=== PATIENT | female | born 1985 | race African-American/Black ===

== ENCOUNTER 2016-12-21 13:41 | Inpatient (IN) ==
--- NOTE | 2016-12-21 14:19 | EKG Report ---
Test Performed on : 12/21/2016 1:52:07 PM Test Reason : dizziness Blood Pressure : / mmHG Vent. Rate : 086 BPM Atrial Rate : 086 BPM P-R Int : 130 ms QRS Dur : 096 ms QT Int : 360 ms P-R-T Axes : 069 017 024 degrees QTc Int : 430 ms Normal sinus rhythm. Normal ECG When compared with ECG of 05-DEC-2015 18:54, No significant change was found Unconfirmed Result
[2016-12-21 14:32] LABS: URINE MICRO REVIEW NEEDED? NO; URINE SOURCE CLEAN CATCH
[2016-12-21 14:33] LABS: MANUAL DIFF NEEDED? NO
[2016-12-21 14:38] LABS: BILIRUBIN URINE NEGATIVE (NEGATIVE); BLOOD URINE NEGATIVE (NEGATIVE); COLOR YELLOW; GLUCOSE URINE NEGATIVE (NEGATIVE); LEUKOCYTES URINE NEGATIVE (NEGATIVE); NITRITE URINE NEGATIVE (NEGATIVE); PROTEIN URINE NEGATIVE (NEGATIVE); SP GRAVITY URINE 1.014; TURBIDITY URINE CLEAR (CLEAR); UROBILINOGEN URINE NORMAL (NORMAL)
[2016-12-21 14:39] LABS: UR EPITHELIAL CELLS >10 /HPF (<10); URINE BACTERIA 2+ /HPF; URINE CULTURE NEEDED? YES; URINE RBC <10 /HPF (<10); URINE WBC <10 /HPF (<10)
[2016-12-21 14:41] LABS: BASO% 0.3 % (0.0-0.8); EOS# 0.01 X1000 (0.0-0.7); EOS% 0.1 % (0.0-10.0); HEMATOCRIT 30.3 % (37.0-47.0); HEMOGLOBIN 8.8 g/dL (12.0-16.0); LYMPH# 1.84 X1000 (1.2-3.4); LYMPH% 27.6 % (20.5-51.1); MCV 82.6 FL (81-99); MPV 9.2 FL (7.4-10.4); PLT 368 X1000 (130-400); RBC 3.67 XMIL (4.2-5.4)
[2016-12-21] MEDS ORDERED: NS 1,000 ML IV ONE (14:43)
[2016-12-21 14:48] LABS: INR 1.01; PROTIME 10.6 Seconds (9.2-11.7); PTT 24.4 Seconds (22.0-36.0)
[2016-12-21 15:02] LABS: UR AMPHETAMINES QUAL NONE DETECTED (NONE DETECT); UR BARBITUATES QUAL NONE DETECTED (NONE DETECT); UR BENZODIAZEPIN QUAL NONE DETECTED (NONE DETECT); UR CANNABINOIDS QUAL NONE DETECTED (NONE DETECT); UR COCAINE QUAL NONE DETECTED (NONE DETECT); UR METHADONE QUAL NONE DETECTED (NONE DETECT); UR OPIATES QUAL NONE DETECTED (NONE DETECT); UR OXYCODONE QUAL NONE DETECTED (NONE DETECT); UR PCP QUAL NONE DETECTED (NONE DETECT)
--- NOTE | 2016-12-21 15:05 | Diag Imaging Result Document ---
PROCEDURE NAME: HEAD W/O CONTRAST - 12/21/2016 CT OF THE HEAD WITHOUT CONTRAST: FINDINGS: There is no evidence of mass effect, bleed, or abnormal extra-axial fluid collection. The calvarium is intact. Compared to 07/28/2015, there has been no significant change. IMPRESSION: No evidence of acute intracranial disease.
[2016-12-21 15:06] LABS: AGAP 12; ALBUMIN 4.6 g/dL (3.5-5.0); ALKALINE PHOSPHATASE 46 U/L (32-104); BUN 8 mg/dL (8-22); CALCIUM 9.1 mg/dL (8.8-10.2); CHLORIDE 103 mmol/L (98-107); COSMO 276; GOT 12 U/L (10-30); GPT 12 U/L (10-36); POTASSIUM 3.9 mmol/L (3.5-5.1); SODIUM 139 mmol/L (136-145); TCO2 24 mmol/L (25-35); TOTAL BILIRUBIN 0.15 mg/dL (0.20-1.00); TOTAL PROTEIN 7.6 g/dL (6.3-8.3)
--- NOTE | 2016-12-21 15:14 | Diag Imaging Result Document ---
PROCEDURE NAME: CHEST-PORTABLE - 12/21/2016 PORTABLE CHEST AT 1440 HOURS: FINDINGS: There is no evidence of acute cardiac or pulmonary disease. The inspiration is slightly less optimal than on 06/04/2016. Otherwise, there has been no significant change. IMPRESSION: No acute disease.
[2016-12-21] MEDS ORDERED: MOTRIN PO ONE (16:24)
[2016-12-21 16:44] LABS: RETIC% 1.07 % (0.8-2.1); RETIC-HE 23.2 PG (28.2-36.6)
[2016-12-21 16:53] LABS: IRON SATURATION 10 %; TIBC 349 ug/dL; TOTAL IRON 35 ug/dL (49-151); UNBOUND IRON 314 ug/dL (112-346)
--- NOTE | 2016-12-21 17:00 | PROVIDER DOCUMENTATION ---
This chart was entered by Estefany Cunha Scribe, acting as scribe for Liss Harris MD. HPI-Neurological Disorder - General Chief Complaint: Stroke-Like Symptoms Stated Complaint: DIZZINESS,EDDY,TIGHTNESS IN LEFT HAND Time Seen by Provider: 12/21/16 13:56 Source: patient Allergies/Adverse Reactions: Patient Allergies Allergy/AdvReac Type Severity Reaction Status Date / Time hydromorphone HCl * Allergy Severe ANAPHYLAXIS Verified 12/21/16 14:17 [From Dilaudid] sulfamethoxazole AdvReac NAUSEA/VOMI Verified 12/21/16 14:17 [From Bactrim] TING trimethoprim [From Bactrim] AdvReac NAUSEA/VOMI Verified 12/21/16 14:17 TING Home Medications: Home Medication List Medication Instructions Recorded Confirmed Last Taken Type NK [No Home Medications] 12/21/16 12/21/16 Unknown History - History of Present Illness-Neuro Nature of Presenting Problem: 31 y/o F presents to ED cc of possible stroke. 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 Pt states she was in the ICU at [facility] for it. Pt today presents to ED with L sided numbness and weakness. Pt states she has had a R sided headache x 2 days now. Pt also reports difficult speaking and forgetting what she is saying. Pt was following up with neurology and states stopped her medication and stopped following up when all symptoms went away. Pt denies any pain other than a headache. Pt family states noticed pt having trouble forming her words and the L side weakness. Family states pt has been limping on the L leg and needed assistance with getting dressed due to weakness of leg and arm. Family also states pt has a droop to the L side of face on smile. Family also reports pt having trouble driving today . Pt was made by family to come to ED for the symptoms. Pt is alert and oriented and in no distress on exam. On exam pt does have pronator drift to left leg and arm. Pt also has spasticity to the left hand. Headache Location: reports: temporal (R side), occipital Severity: reports: mild Onset/Duration: reports: 2 days ago Timing: reports: still present Context: reports: impaired speech, facial droop, other (L sided weakness) Character of Altered Mental Status: reports: N/A Any recent trauma/injury?: reports: none Character of Deficits: reports: new weakness (L arm/ leg) New weakness or altered sensation location:: reports: LUE, LLE, left facial Cognitive Baseline: alert, oriented x3 Gait Baseline: walks without assistance Associated Symptoms: reports: decreased ability to walk or stand (due to), numbness in legs/feet (L leg), slurred speech, other (facial droop(l side)). denies: fever/chills, tingling in legs/feet Similar Symptoms Previously?: No Recently seen or treated by another doctor?: No Review of Systems - Adult - REVIEW OF SYSTEMS - ADULT Constitutional: denies: chills, fever Ears, Nose, Mouth & Throat: denies: ear pain, throat pain Cardiovascular: denies: chest pain, palpitations Respiratory: denies: cough, shortness of breath Gastrointestinal: denies: abdominal pain, diarrhea, nausea, vomiting Genitourinary: denies: discharge, frequency Musculoskeletal: denies: bone pain, back pain Integumentary: denies: rash, skin thickening Neurological: reports: headache/migraines (R SIDED X 2 DAYS), numbness (L LEG / L ARM), slurred speech, other (L sided facial droop) Past History - Adult - PAST MEDICAL HISTORY-ADULT Review of Records: reports: Old Records Reviewed, Nursing Assessment Review Major Childhood Illnesses: reports: denies history Cardiovascular: reports: denies history Respiratory: reports: denies history Gastrointestinal: reports: denies history Obstetrical/Gynecological: reports: denies history Genitourinary: reports: denies history Musculoskeletal: reports: denies history Neurological: reports: CVA Psychiatric: reports: other (conversion disorder) Endocrine/Immune: reports: denies history Other Conditions: reports: denies history - PRIOR SURGERIES/PROCEDURES Surgical/Procedure History: reports: (x2), other (breast reduction) - PRIOR HOSPITALIZATIONS Prior Hospitalizations: reports: none - IMMUNIZATION STATUS Childhood Immunizations: See Nurse Assessment Flu Vaccine: See Nurse Assessment - FAMILY HISTORY Family History: reviewed, not pertinent - SOCIAL HISTORY Smoking: denies, non-smoker Substance Use: denies Physical Exam- Neurological - Physical Exam-Neuro Initial Vital Signs Reviewed: Yes General Appearance: alert, no apparent distress HENMT: moist mucous membranes, normal ENT inspection Head Injury: no evidence of injury Neck: non-tender Respiratory: chest non-tender, lungs clear, normal breath sounds Cardiovascular: normal peripheral pulses, regular rate, rhythm, no edema Abdominal Exam: normal bowel sounds, non tender, soft Extremity: non-tender, no pedal edema, no calf 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: normal hearing Neurologic: abnormal gait, facial droop (L side), other ( pronator drift to L leg/ L arm.) Integumentary: normal color, normal turgor, warm/dry Psych/Mental Status: oriented x 3 Progress - PLAN OF CARE/RESULTS Progress/Plan/Lab Results: Vital Signs - 8 hr 12/21/16 13:49 Temperature 98.4 F Pulse Rate 87 Respiratory Rate 18 Blood Pressure 127/58 O2 Sat by Pulse Oximetry 100 Bedside Urine ED: Urine Bedside Start: 12/21/16 14:09 Freq: ORDERED Status: Active Activity Type Activity Date Activity User E-Sign Co-Sign Detail Recorded Client Recorded Date Recorded By Document 12/21/16 14:22 [id number] 12/21/16 14:22 [id number] 12/21/16 14:22 Point of Care [Bedside Point of Care] -Lot # [id number] - Results Negative -Control Line Visible? Yes Laboratory Results - last 24 hr 12/21/16 12/21/16 12/21/16 14:20 14:20 14:20 WBC 6.67 RBC 3.67 L Hgb 8.8 L Hct 30.3 L MCV 82.6 MCH 24.0 L MCHC 29.0 L RDW Std Deviation 15.1 H Plt Count 368 MPV 9.2 Neut % (Auto) 66.0 Lymph % (Auto) 27.6 Wallace % (Auto) 6.0 Eos % (Auto) 0.1 Baso % (Auto) 0.3 Neut # (Auto) 4.40 Lymph # (Auto) 1.84 Wallace # (Auto) 0.40 Eos # (Auto) 0.01 Baso # (Auto) 0.02 PT 10.6 INR 1.01 PTT (Actin FS) 24.4 Sodium 139 Potassium 3.9 Chloride 103 Carbon Dioxide 24 L Anion Gap 12 BUN 8 Creatinine 0.8 Estimated GFR/1.73 m2 > 60 BUN/Creatinine Ratio 10 Glucose 99 Calculated Osmolality 276 Calcium 9.1 Total Bilirubin 0.15 L AST 12 ALT 12 Alkaline Phosphatase 46 Troponin T Total Protein 7.6 Albumin 4.6 Globulin 3.0 Albumin/Globulin Ratio 1.5 Urine Source Urine Color Urine Turbidity Urine pH Ur Specific [place] Urine Protein Ur Glucose (Stick) Ur Ketones (Stick) Urine Blood Urine Nitrite Urine Bilirubin Urobilinogen Dipstick Urine Leukocytes Urine WBC (Auto) Urine RBC (Auto) U Epithel Cells (Auto) Urine Bacteria (Auto) Urine Opiates Screen Ur Oxycodone Screen Ur Methadone, Qual Ur Barbiturates Screen Ur Phencyclidine Scrn Ur Amphetamines Screen U Benzodiazepines Scrn Urine Cocaine Screen U Cannabinoids Screen 12/21/16 12/21/16 12/21/16 14:20 14:20 14:20 WBC RBC Hgb Hct MCV MCH MCHC RDW Std Deviation Plt Count MPV Neut % (Auto) Lymph % (Auto) Wallace % (Auto) Eos % (Auto) Baso % (Auto) Neut # (Auto) Lymph # (Auto) Wallace # (Auto) Eos # (Auto) Baso # (Auto) PT INR PTT (Actin FS) Sodium Potassium Chloride Carbon Dioxide Anion Gap BUN Creatinine Estimated GFR/1.73 m2 BUN/Creatinine Ratio Glucose Calculated Osmolality Calcium Total Bilirubin AST ALT Alkaline Phosphatase Troponin T < 0.010 Total Protein Albumin Globulin Albumin/Globulin Ratio Urine Source CLEAN CATCH Urine Color YELLOW Urine Turbidity CLEAR Urine pH 7.0 Ur Specific [place] 1.014 Urine Protein NEGATIVE Ur Glucose (Stick) NEGATIVE Ur Ketones (Stick) NEGATIVE Urine Blood NEGATIVE Urine Nitrite NEGATIVE Urine Bilirubin NEGATIVE Urobilinogen Dipstick NORMAL Urine Leukocytes NEGATIVE Urine WBC (Auto) <10 Urine RBC (Auto) <10 U Epithel Cells (Auto) >10 A Urine Bacteria (Auto) 2+ Urine Opiates Screen NONE DETECTED Ur Oxycodone Screen NONE DETECTED Ur Methadone, Qual NONE DETECTED Ur Barbiturates Screen NONE DETECTED Ur Phencyclidine Scrn NONE DETECTED Ur Amphetamines Screen NONE DETECTED U Benzodiazepines Scrn NONE DETECTED Urine Cocaine Screen NONE DETECTED U Cannabinoids Screen NONE DETECTED Orders Category Date Time Status Cardiac Monitoring DIRECTED Care 12/21/16 14:08 Active ED: Urine Bedside ORDERED Care 12/21/16 14:09 Active Finger Stick Blood Sugar (ED) DIRECTED Care 12/21/16 14:08 Active Saline Loc NOW Care 12/21/16 14:08 Active CHEST-PORTABLE [RAD] Stat Exams 12/21/16 14:08 Completed HEAD W/O CONTRAST [CT] Stat Exams 12/21/16 14:08 Completed CBC WITH ELECTRONIC DIFF [HEME] Stat Lab 12/21/16 14:20 Completed COMPREHENSIVE METABOLIC PANEL [CHEM] Stat Lab 12/21/16 14:20 Completed PROTIME WITH INR [COAG] Stat Lab 12/21/16 14:20 Completed PTT [COAG] Stat Lab 12/21/16 14:20 Completed TROPONIN T Stat Lab 12/21/16 14:20 Completed URINALYSIS W/POSS RFLX CULT [URINALYSIS] Stat Lab 12/21/16 14:20 Completed URINE DRUG SCREEN Stat Lab 12/21/16 14:20 Completed 0.9% Sodium Chloride Inj [Ns] 1,000 ml Med 12/21/16 14:08 Active IV 100 mls/hr 0.9% Sodium Chloride Inj [Ns] 1,000 ml Med 12/21/16 14:43 Active IV 999 mls/hr EKG [EKG] Stat Ther 12/21/16 13:45 Draft PLAN: LABS, HEAD CT, FLUIDS, URINE, MONITOR PT. Result Diagrams: 12/21/16 14:20 12/21/16 14:20 - XRAY 1 XRAY: Bilateral XRAY Study: Chest Impression: Normal XRAY Interpretation: nad- (radiologist) - CT/MRI 1 CT Study: Head Impression: Normal (no bleed or mass, stable since 07/28/15) CT Results: see impression - Dr. Cedeño(radiologist) - CONSULTS/PCP/HOSPITALIST Notification #1 *Consult/PCP/Hospitalist*: Time Discussed: 15:38 Consult Disposition: Admit Departure - Departure Time of Disposition Decision: 15:42 DIAGNOSIS: Focal neurological deficit Disposition: ADMITTED INPATIENT 09 Certified Medical Emergency: Emergent Condition: Stable Referrals and Follow-Ups: None,PCP [Primary Care Provider] - - NIH Stroke Scale Level of Consciousness: 0-Alert LOC Questions (ask month and age): 0-Answers Both Correctly LOC Commands (ask to open & close eyes;make a fist, let go): 0-Obeys Both Correctly Best Gaze (horizontal eye movement): 0-Normal Visual (use finger movement, counting or visual threat): 0-No Visual Loss Motor Function-left arm: 1-Drift Motor Function-right arm: 0-Normal Motor Function-left le-Drift Motor Function-right le-Normal Limb Ataxia([id number], or heel to espitia): 1-Present in one limb Sensory(pin prick to face,arms,trunk,legs-compare side/side): 0-No Ataxia This chart was documented by the indicated scribe, (Estefany Cunha, Dena) and accurately reflects the services I performed and decisions made by , Liss Harris MD, as attested by the provider's signature.
--- NOTE | 2016-12-21 17:07 | HISTORY AND PHYSICAL ---
CHIEF COMPLAINT: Left-sided weakness. HISTORY OF PRESENT ILLNESS: Mrs. Sosa is a pleasant, 31-year-old female with a history of possible migraines and possible conversion disorder, who presents to [facility] with left-sided weakness and altered mental status. Initially her boyfriend at the bedside began giving the history because of the patient was awake but not responding to questions and then she eventually began to answer questions. She states that she has been having a headache over the left side of her head for about 2 days. This morning her boyfriend states he was going to work and when he went to talk to her she was awake but staring off into seemingly nothing and minimally responsive. He tried to get her to response but she did not. She began to drop her left arm and at that time 911 was called. The patient has been seen in our facility and had a complete neurologic workup in July of 2015. At that time she had an MRI and MRA of the head, she had carotids, and echocardiogram, all of which were negative. Dr. Anderson saw her at that time and did not feel that there was any acute pathology occurring. Ultimately she was discharged. She returns today with the same type of symptoms. Her head CT is negative. Chest x-ray is negative. Her lab data is unremarkable with the exception of normocytic anemia. After reviewing her lab data in the past, it would seem that she is chronically anemic. Currently, she has left upper and left lower extremity weakness and numbness and she has a left-sided facial droop. Again, head CT is negative. She is now going to be admitted for further treatment and evaluation. PAST MEDICAL HISTORY: 1. Chronic anemia. 2. Questionable conversion disorder. 3. Questionable migraine headaches. PAST SURGICAL HISTORY: She has had wrist surgery, breast reduction surgery, and x2. FAMILY HISTORY: Both parents are alive. Both parents with hypertension. SOCIAL HISTORY: The patient's boyfriend is at the bedside. She has 2 children. 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 She denies tobacco, alcohol, or drug use. REVIEW OF SYSTEMS: Fourteen-point review of systems was obtained and found to be negative with the exception of the HPI. ALLERGIES: Dilaudid and Bactrim. HOME MEDICATIONS: None. PHYSICAL EXAMINATION: VITAL SIGNS: Blood pressure is 127/58, heart rate is 87, respiratory rate is 18 , O2 saturation 100% on room air, temperature is 98.4 degrees. GENERAL: This is a well-developed, well-nourished, female, lying in the hospital bed, no acute distress. NEUROLOGIC: She is awake and alert at times. There are times when she will have a blank stare without any responsiveness. When she does come to she has trouble answering orientation questions but eventually does answer them correctly. She has left upper and left lower extremity weakness and decreased sensation in her left face, left arm, and left leg pain. She also has a left-sided facial droop and her speech is slightly slurred. HEENT: Head is atraumatic and normocephalic. Her pupils are equal, round, reactive to light. Oral mucosa is moist. Trachea is midline. There is no JVD. No carotid bruits. CHEST: Clear to auscultation bilaterally. CV: Regular rate and rhythm. S1, S2 is noted. There are no murmurs, gallops, clicks, or rubs. GI: Soft, nondistended, nontender. Bowel sounds are positive. EXTREMITIES: No edema, clubbing, or cyanosis. Pulses are palpable bilaterally. DIAGNOSTIC DATA: Head CT does not show anything acute. Chest x-ray is negative. EKG: Sinus rhythm without acute ST or T abnormalities. LAB DATA: WBC 6.67, hemoglobin 8.8, hematocrit 30.3, platelet count 368,000. INR 1.01. Sodium 139, potassium 3.9, chloride 103, CO2 24, anion gap 12, BUN 8, creatinine 0.8, glucose 99, total bilirubin 0.15, AST 12, ALT 12, alkaline phosphatase 46. Troponin negative. UA is negative for any acute process. Toxicology is negative. ASSESSMENT AND PLAN: 1. Left-sided weakness: Very unlikely to be an organic pathology such as CVA. We are most likely dealing with either conversion disorder or migraine induced weakness. In any case, we are going to check an MRI and consult with Dr. Anderson. We would also consider consulting with psychiatry. We will admit her to the floor with telemetry. Add daily low-dose aspirin. Check lipid panel and A1c. Continue with neuro checks. 2. Normocytic anemia: Likely to be chronic. We are going to check iron studies , thyroid function, and treat accordingly. 3. Deep vein thrombosis prophylaxis with Lovenox. Further recommendations to follow. Dictated by ALIREZA Leong for Leila Tee MD cc: ALIREZA Leong MD The patient was seen and examined by me. I agree with the assessment and plan as dictated. [facility]
[2016-12-21 17:09] LABS: FREE T4 0.98 ng/dL (0.93-1.70)
--- NOTE | 2016-12-21 17:20 | Diag Imaging Result Document ---
PROCEDURE NAME: MRA BRAIN W/O CONTRAST - 12/21/2016 MRA OF THE BRAIN: FINDINGS: There is no evidence of aneurysm or major branch occlusion. There is a somewhat beaded appearance of the A-1 segment on the right. This is also true of some of the distal branches, but sometimes this can be a result of artifact. IMPRESSION: No major branch occlusion.
--- NOTE | 2016-12-21 17:21 | Diag Imaging Result Document ---
PROCEDURE NAME: MRI BRAIN W W/O CONTRAST - 12/21/2016 MRI OF THE BRAIN: FINDINGS: There is metallic artifact due to the patient's dental work in the frontal lobes. There is no evidence of mass effect, bleed, or abnormal extra-axial fluid collection. The diffusion-weighted images are suboptimal due to the metallic artifact. No evidence of restricted diffusion is present in the posterior portion of the cerebrum. There is no evidence of abnormal gadolinium enhancement. IMPRESSION: No evidence of acute disease.
[2016-12-21 18:40] LABS: HEMOGLOBIN A1C 4.3 % (4.8-6.0)
[2016-12-21] MEDS: NS 1,000 ML IV PRN ×2 (19:07→23:28)
[2016-12-21] MEDS ORDERED: TYLENOL PO PRN (21:00)
[2016-12-21] MEDS: LOVENOX SUBQ SCH (23:26)
[2016-12-22 07:37] LABS: HEMATOCRIT 27.6 % (37.0-47.0); HEMOGLOBIN 7.7 g/dL (12.0-16.0); MCH 23.5 PG (27-31); MCHC 27.9 g/dL (33-37); MCV 84.1 FL (81-99); MPV 9.2 FL (7.4-10.4); RBC 3.28 XMIL (4.2-5.4)
[2016-12-22 07:49] LABS: AGAP 7; BUN 8 mg/dL (8-22); CALCIUM 8.3 mg/dL (8.8-10.2); CHLORIDE 105 mmol/L (98-107); COSMO 277; SODIUM 140 mmol/L (136-145); TCO2 28 mmol/L (25-35)
[2016-12-22] MEDS ORDERED: IMITREX SUBQ ONE (09:34)
[2016-12-22] MEDS: FERROUS SULFATE PO SCH ×2 (10:21→20:59)
[2016-12-22] MEDS: TOPAMAX PO SCH (10:21)
[2016-12-22] MEDS ORDERED: ATIVAN ONE (10:30)
[2016-12-22] MEDS ORDERED: ATIVAN IV ONE ×2 (10:30→10:37)
[2016-12-22] MEDS ORDERED: KEPPRA 500 MG in NS 100 ML IV ONE (10:40)
[2016-12-22] MEDS: NS 1,000 ML IV SCH ×2 (11:50→20:27)
--- NOTE | 2016-12-22 12:22 | Diag Imaging Result Document ---
PROCEDURE NAME: HEAD W/O CONTRAST - 12/22/2016 CT HEAD WITHOUT CONTRAST: COMPARISON: 12/21/2016. FINDINGS: There is no discrete intracranial mass, mass effect, or intracranial hemorrhage. There is no evidence of hydrocephalus. There is no evidence of acute infarct given the limited sensitivity of CT versus MRI. The surrounding soft tissues and bony structures are essentially unremarkable. IMPRESSION: No evidence of acute intracranial pathology.
--- NOTE | 2016-12-22 13:41 | PROGRESS NOTE ---
DATE: 12/22/2016 SUBJECTIVE: The patient this morning after she received a dose of Imitrex she was noted to exhibit seizure activity. The patient required a total of 3 mg of Ativan to stop the seizure activity. She was then started on Keppra. A stat head CT was done which was noted to be unremarkable. The patient is now awake and alert. OBJECTIVE: Vital Signs: Temperature 98 degrees, blood pressure 117/71, heart rate 82, respirations 18, O2 saturation is 100% on room air. General: This is a young female, lying in bed, in no acute distress. Head: Normocephalic atraumatic. Heart: S1, S2. Normal. Regular rate and rhythm. Lungs: Clear to auscultation bilaterally. No wheezes, no rales. No rhonchi. Abdomen: Positive bowel sounds. Soft, nontender, nondistended. Extremities: No edema. No cyanosis. No calf tenderness. Neurologic: The patient and oriented x3. LABS: White blood cell count 4.5, hemoglobin 7.7, hematocrit 27, platelets 303, 000. Sodium 140, potassium 4, chloride 105, CO2 28, BUN 8. Creatinine 0.8, glucose 91. Head CT negative. ASSESSMENT AND PLAN: 1. Seizures. The patient has been started on IV Keppra: We will continue this for today and reassess the patient in the morning. The patient will be moved to the CICU for closer monitoring. She will also be placed on seizure precautions. An EEG has been ordered. The patient has been seen by Dr. Anderson as well. 2. Left-sided weakness. This is improved today. The patient's imaging is unremarkable. We will continue to monitor the patient for improvement. Physical therapy has also been consulted. 3. Possible migraines. The patient has been started on Topamax and p.r.n. Fioricet. 4. Iron deficiency anemia. The patient admits that she has been taking a lot of NSAID lately due to severe headaches. We will check a stool for occult blood. If that is positive we will consult GI. 5. Gastrointestinal prophylaxis. Will start the patient on Protonix. cc: Leila Tee MD MTD[place]apoleon
--- NOTE | 2016-12-22 14:44 | CONSULTATION ---
DATE OF CONSULTATION: 12/22/2016 HISTORY OF PRESENT ILLNESS: Ms. Sosa is 31 years old, and she was admitted with headache and subjective left-sided weakness. Earlier this morning, she had an episode raising question of seizure. History from the patient is that she had first "seizure" episode in 2008, possibly during rectal examination. She had subsequent spells with variable frequency. Recent episodes have occurred once or twice per week. Data Conversion Operator at the bedside has witnessed several recent spells. He reports she will suddenly stop talking in the middle of a conversation, and he will see that she has a blank stare, gaze fixed straight ahead, no movement. This usually resolves in less than a minute. She sometimes feels tired afterward. On a few occasions, he has seen some rigidity and twitching in the limbs associated with these blank staring spells. There has not been clear focal neurologic feature. This morning, there was twitching in the limbs which did not appear to be typical clonic activity. She reports taking topiramate for a short time in the remote past. Otherwise, she has not been treated with medicines to control seizures. She denies illicit drug use, ethanol abuse, benzodiazepine use. Her urine drug screen was all negative this admission. Urine drug screen was positive for benzodiazepines in July 2015, but I do not think she had prescription for those drugs then. Workup this admission includes noncontrast CT of the head unremarkable on admission yesterday and repeated again today, again unremarkable. Brain MRI with/without contrast was unremarkable. Brain MRA was unremarkable. Systolic blood pressures have ranged 100s to 120s. Heart rate is running 60s to 80s. She has been afebrile. Lab work showed initial calcium 9.1 , later 8.3. I do not see anything else remarkable in the chemistry profile. She has history of headache. She presented to the hospital in July 2015 with headache and subjective right-sided weakness. There was no definite neurologic deficit. Workup was negative then. That resolved. OBJECTIVE: On exam today, she is awake, alert. She has good power in the arms and legs. There is some clearly inconsistent effort with testing motor power in the left limbs and no definite reproducible motor deficit apparent. Tone is equal in the limbs. She did well on [id number] testing bilaterally. I did not test her gait. Plantar response is silent bilaterally. Reflexes are 2+ at the knees and ankles bilaterally. She reports subjective loss of pinprick and light touch appreciation in a patchy pattern across the left limbs, margins inconsistent and not reproducible. Head and neck are unremarkable. There is no meningismus. She protrudes her tongue consistently to the right, but when I encouraged her to move her tongue to the left, she did so very well. Extraocular movements are full. Visual clark are full tested by confrontational finger counting. Facial motility is symmetric. Gag is intact. Palate is midline. IMPRESSION: 1. Episode earlier today with some twitching movement, not typical of clonic activity. 2. Previous episodes of blank stare without definite motor phenomena. 3. Episodic headache consistent with migraine. 4. Subjective left-sided weakness and numbness with no definite objective finding. 5. Presentation a few years ago with subjective right-sided weakness and no objective finding. Negative workup to this point is reassuring. The blank staring spells are consistent with partial seizure. That raises the possibility that all of her episodes are seizures and that her transient weakness is postictal hemiparesis, right-sided in 2015 and left-sided this time. More likely, all of her episodes are not seizures, and it may be that none of these are truly seizures. However, I think best management today, as discussed with Dr. Tee, is to treat her with medicine for seizure control. She has been started on levetiracetam and we can continue that. We will plan EEG when practical. I encouraged her to be careful with medicines. We discussed the [place] law as it pertains to driving, and she understands her responsibility. Further, I cautioned her not to get into any situation in which one of these episodes might result in serious injury to her or to someone else. Thanks for asking me to see Ms. Sosa. cc: MD YIFAN Nguyen III
[2016-12-22] MEDS: ATIVAN IV PRN ×3 (16:22→20:30)
[2016-12-22] MEDS ORDERED: CEREBYX 1,500 MG in NS 100 ML IV ONE (16:45)
[2016-12-22] MEDS ORDERED: SOLU-MEDROL IV ONE (17:04)
[2016-12-22] MEDS ORDERED: BENADRYL IV ONE (17:05)
[2016-12-22] MEDS: KEPPRA 500 MG in NS 100 ML IV SCH (20:05)
[2016-12-22] MEDS: SODIUM CHLORIDE 0.9% INJ SCH (20:59)
[2016-12-22] MEDS: FIORICET PO PRN (20:59)
[2016-12-22] MEDS: PROTONIX IV SCH (20:59)
[2016-12-22] MEDS: LOVENOX SUBQ SCH (20:59)
[2016-12-22] MEDS ORDERED: KEPPRA 250 MG in NS 100 ML IV ONE (22:15)
[2016-12-22] MEDS ORDERED: KEPPRA 750 MG in NS 100 ML IV SCH (22:15)
[2016-12-23] MEDS ORDERED: CEREBYX IV SCH (01:00)
[2016-12-23] MEDS: ATIVAN IV PRN ×3 (02:27→13:08)
[2016-12-23] MEDS: KEPPRA 500 MG in NS 100 ML IV SCH (02:30)
[2016-12-23] MEDS: NS 1,000 ML IV SCH ×2 (05:03→14:24)
[2016-12-23 05:47] LABS: HEMATOCRIT 30.5 % (37.0-47.0); HEMOGLOBIN 8.7 g/dL (12.0-16.0); MCH 23.6 PG (27-31); MCHC 28.5 g/dL (33-37); MCV 82.9 FL (81-99); MPV 9.2 FL (7.4-10.4); RBC 3.68 XMIL (4.2-5.4)
[2016-12-23 06:07] LABS: AGAP 14; BUN 7 mg/dL (8-22); CALCIUM 9.2 mg/dL (8.8-10.2); CHLORIDE 106 mmol/L (98-107); COSMO 279; POTASSIUM 4.4 mmol/L (3.5-5.1); SODIUM 141 mmol/L (136-145); TCO2 21 mmol/L (25-35)
[2016-12-23] MEDS: ZOFRAN IV PRN ×2 (07:43→12:47)
[2016-12-23] MEDS: FERROUS SULFATE PO SCH ×2 (08:56→19:59)
[2016-12-23] MEDS: TOPAMAX PO SCH (08:56)
[2016-12-23] MEDS ORDERED: KEPPRA 750 MG in NS 100 ML IV SCH (09:00)
[2016-12-23] MEDS: FIORICET PO PRN (10:39)
[2016-12-23] MEDS ORDERED: KEPPRA 250 MG in NS 100 ML IV ONE (13:17)
[2016-12-23] MEDS: DEPACON 500 MG in NS 50 ML IV SCH ×2 (14:23→20:00)
--- NOTE | 2016-12-23 15:04 | PROGRESS NOTE ---
DATE: 12/23/2016 SUBJECTIVE: The patient was noted to have seizure activity overnight and early this morning. She also had what appeared to be a seizure this afternoon; however, the nursing staff reports that during the event the patient was licking her boyfriend's arm the whole time, so there is a question as to whether this was truly a seizure this afternoon. OBJECTIVE: Vital Signs: Temperature 98.7 degrees, blood pressure 122/96, heart rate 81, respirations 21, O2 saturation 100% on room air. General: This is a young female lying in bed in no acute distress. HEENT: Head normocephalic, atraumatic. Heart: S1 and S2 normal. Regular rate and rhythm. Lungs: Clear to auscultation bilaterally. No wheezing. No rales. No rhonchi. Abdomen: Positive bowel sounds. Soft, nontender, nondistended. Extremities: No edema. No cyanosis. No calf tenderness. Neurologic: The patient is alert oriented x3. LABORATORIES: White blood cell count 6.6, hemoglobin 8.7, hematocrit 30, platelets 351,000. Sodium 141, potassium 4.4, chloride 106, CO2 of 21, BUN 7, creatinine 0.7, glucose 95. ASSESSMENT AND PLAN: 1. Seizures versus pseudoseizures. The case was discussed with Dr. Anderson and we will increase the patient's Keppra to 1000 mg IV q.12 hours. We will also add Depacon 500 mg IV every 8 hours. Continue on seizure precautions. We will continue to monitor the patient closely for improvement. 2. Iron-deficiency anemia. The patient's hemoglobin and hematocrit are stable. Continue on iron supplementation. 3. Headache. Continue on p.r.n. Fioricet. 4. Gastrointestinal prophylaxis. Continue on Protonix. 5. Deep vein thrombosis prophylaxis. Continue on Lovenox. 6. The plan of care was discussed with the patient and her boyfriend. cc: Leila Tee MD [facility]
[2016-12-23] MEDS: PROTONIX IV SCH (19:59)
[2016-12-23] MEDS: SODIUM CHLORIDE 0.9% INJ SCH (19:59)
[2016-12-23] MEDS: LOVENOX SUBQ SCH (20:00)
[2016-12-24] MEDS: KEPPRA 1,000 MG in NS 100 ML IV SCH ×3 (00:02→22:44)
[2016-12-24] MEDS: PROTONIX IV SCH ×2 (02:33→22:44)
[2016-12-24] MEDS: DEPACON 500 MG in NS 50 ML IV SCH ×4 (02:34→20:23)
[2016-12-24] MEDS: NS 1,000 ML IV SCH ×4 (02:34→14:23)
[2016-12-24] MEDS: ATIVAN IV PRN ×3 (02:43→15:45)
[2016-12-24] MEDS: TOPAMAX PO SCH (11:03)
[2016-12-24] MEDS: FERROUS SULFATE PO SCH ×2 (11:04→20:50)
--- NOTE | 2016-12-24 14:45 | PROGRESS NOTE ---
DATE: 12/24/2016 SUBJECTIVE: The patient did have seizure activity last night and early this morning. Each time after the patient was given Ativan the activity did cease. The patient is resting at this time. OBJECTIVE: Vital Signs: Temperature 98 degrees, blood pressure 152/79, heart rate 82, respirations 18, O2 saturation is 100% on room air. General: This is an obese female, lying in bed, in no acute distress. Head: Normocephalic, atraumatic. Heart: S1, S2. Normal. Regular rate and rhythm. Lungs: Clear to auscultation bilaterally. No wheezes. No rales. No rhonchi. Abdomen: Positive bowel sounds. Soft, nontender, nondistended. Extremities: No edema. No cyanosis. No calf tenderness. Neurological: Patient is alert and oriented x3. No focal neurologic deficits noted. LABS: None. ASSESSMENT AND PLAN: 1. Seizure disorder vs. pseudoseizures. Continue on Keppra and depacon. Neurology is following. The Keppra level is currently pending. 2. Iron-deficiency anemia. Continue on iron supplementation. 3. Headache. Continue on p.r.n. Fioricet. 4. Gastrointestinal prophylaxis. Will continue on Protonix. 5. Deep vein thrombosis prophylaxis. Will continue on Lovenox. cc: Leila Tee MD [facility]
--- NOTE | 2016-12-24 18:13 | PROGRESS NOTE ---
DATE: 12/24/2016 SUBJECTIVE: Ms. Sosa has continued to have episodes with question of seizure. She had a spell less than 2 hours before my rounds this afternoon. This was reported to be generalized rigidity with typical clonic activity and typical postictal state. She has levetiracetam 1000 mg q.12 hours and divalproex given has valproic acid 500 mg q.6 hours IV. She had a partial phenytoin load yesterday. Phenytoin level is 7.7. Valproic acid level 70.8. OBJECTIVE: On exam now, she is awake and alert. She still has inconsistent effort with motor testing in the left arm. There is no new neurologic deficit. IMPRESSION: Remains that she has episodes which may or may not be seizures. It may be that some spells are seizures and some are not. I remain optimistic that whatever part of her trouble is truly due to seizure can be controlled with medication. We will continue the current valproic acid dose, increase the levetiracetam to 1000 mg q.8 hours, check levetiracetam serum level on that dose tomorrow. We might consider prolonged electroencephalogram recording while she is monitored here. Thanks for allowing me to follow Ms. Sosa. cc: MD YIFAN Nguyen III
[2016-12-24 19:05] LABS: URINE MICRO REVIEW NEEDED? NO; URINE SOURCE CATH
[2016-12-24 19:10] LABS: BILIRUBIN URINE NEGATIVE (NEGATIVE); BLOOD URINE TRACE (NEGATIVE); COLOR STRAW; GLUCOSE URINE NEGATIVE (NEGATIVE); LEUKOCYTES URINE SMALL (NEGATIVE); NITRITE URINE NEGATIVE (NEGATIVE); PROTEIN URINE NEGATIVE (NEGATIVE); SP GRAVITY URINE 1.006; TURBIDITY URINE CLEAR (CLEAR); UROBILINOGEN URINE NORMAL (NORMAL)
[2016-12-24 19:12] LABS: UR EPITHELIAL CELLS <10 /HPF (<10); URINE BACTERIA 1+ /HPF; URINE CULTURE NEEDED? YES; URINE RBC <10 /HPF (<10)
[2016-12-24] MEDS: LOVENOX SUBQ SCH (20:39)
[2016-12-24] MEDS: SODIUM CHLORIDE 0.9% INJ SCH (22:44)
[2016-12-24] MEDS: ROCEPHIN 1 GM/NS 1 GM/50 ML IVPB IV SCH (22:54)
[2016-12-25] MEDS: ATIVAN IV PRN ×2 (02:17→11:04)
[2016-12-25] MEDS: NS 1,000 ML IV SCH ×3 (02:36→18:18)
[2016-12-25] MEDS: DEPACON 500 MG in NS 50 ML IV SCH ×4 (02:36→21:41)
[2016-12-25] MEDS: KEPPRA 1,000 MG in NS 100 ML IV SCH ×3 (06:12→21:41)
[2016-12-25 06:25] LABS: HEMATOCRIT 29.3 % (37.0-47.0); HEMOGLOBIN 8.5 g/dL (12.0-16.0); MCH 23.9 PG (27-31); MCV 82.3 FL (81-99); MPV 9.3 FL (7.4-10.4); RBC 3.56 XMIL (4.2-5.4)
[2016-12-25 06:27] LABS: AGAP 14; BUN 8 mg/dL (8-22); CALCIUM 8.6 mg/dL (8.8-10.2); CHLORIDE 103 mmol/L (98-107); COSMO 275; POTASSIUM 4.2 mmol/L (3.5-5.1); SODIUM 139 mmol/L (136-145); TCO2 22 mmol/L (25-35)
--- NOTE | 2016-12-25 07:27 | Diag Imaging Result Document ---
PROCEDURE NAME: HEAD W/O CONTRAST - 12/24/[address]: A CT dose reduction protocol was used. COMPARISON: 12/22/2016, 12/21/2016. FINDINGS: The ventricles and sulci are normal in size and contour. There is no mass, hemorrhage, or evidence of acute ischemia. The bony calvaria is intact. The visualized paranasal sinuses and mastoid air cells are clear. IMPRESSION: Negative head CT. MTDD
[2016-12-25] MEDS: FIORICET PO PRN ×2 (08:36→22:44)
[2016-12-25] MEDS: TOPAMAX PO SCH (08:36)
[2016-12-25] MEDS: FERROUS SULFATE PO SCH ×2 (08:37→20:45)
--- NOTE | 2016-12-25 10:42 | PROGRESS NOTE ---
DATE: 12/25/2016 SUBJECTIVE: Patient has no focal complaints. She is awake, alert. No seizure activity since last night. OBJECTIVE: Vital Signs: Blood pressure 107/65, heart rate 77, respiratory rate 17, temperature 98.2, 98% on room air. Cardiovascular: Regular rate and rhythm. Pulmonary: Bilateral breath sounds clear to auscultation. GI: Soft, nontender, nondistended. Bowel sounds are positive. Neurologic: She has a nonfocal exam. However, she is fairly lethargic. She does answer questions appropriately but she falls asleep mid conversation. Granted, she is on several sedating medications for her seizures and has received Ativan. LABORATORY DATA: Hemoglobin and hematocrit are 8 and 29, white count is normal. CMP normal. PROBLEM LIST: 1. Seizure disorder. Clinically, she is stable. I am not completely convinced this is a seizure type disorder. We have not had an electroencephalogram since she has been here. I think Dr. Anderson mentioned going through that. I guess we will go ahead and pursue that today, and then see how she does. Again, I am not completely convinced these are all seizures in any case because she has no postictal state. She wakes up immediately. Yesterday, seizure disorder episode, she was licking her by nursing and documentation so it is unclear if this is truly a process completely defined by epilepsy or primary seizure disorder. 2. Urinary tract infection. We will continue empiric antibiotics. She is not eating very much. She kind of refuses to eat. We will continue to monitor that. DISPOSITION: Patient wants to go home but she is still very lethargic. I do not know. We will re-evaluate her later today and decide about home versus just staying another 24 hours. I am going to likely lean on observing her for another 24 hours and discharge tomorrow. cc: Ed Rothman MD
--- NOTE | 2016-12-25 15:55 | PROGRESS NOTE ---
DATE: 12/25/2016 The patient is in the ICU bed 11. Ms. Sosa had just had one of her episodes as I approached her bedside. She was sitting up, awake, demonstrating variable voluntary resistance in the limbs. I did not see the episode. She did not respond to me verbally. She did not have dolls eyes (indicating full consciousness). Lab showed valproic acid level of 296. We have a levetiracetam level pending. We can consider further EEG monitoring when prudent. I discussed with family at the bedside. My impression is that whatever part of her trouble, if any, is due to seizure is likely controlled. I do not have any urgent suggestion from a neurologic standpoint today. Thanks for asking me to see Ms. Sosa. cc: MD YIFAN Nguyen III
[2016-12-25] MEDS: ROCEPHIN 1 GM/NS 1 GM/50 ML IVPB IV SCH (20:45)
[2016-12-25] MEDS: LOVENOX SUBQ SCH (20:45)
[2016-12-25] MEDS: PROTONIX IV SCH (20:57)
[2016-12-26] MEDS: DEPACON 500 MG in NS 50 ML IV SCH ×2 (05:00→09:10)
[2016-12-26] MEDS: KEPPRA 1,000 MG in NS 100 ML IV SCH (05:50)
[2016-12-26] MEDS: NS 1,000 ML IV SCH ×2 (07:24→09:26)
[2016-12-26] MEDS: FERROUS SULFATE PO SCH (09:09)
[2016-12-26] MEDS: TOPAMAX PO SCH (09:09)
[2016-12-26 09:37] VITALS: BP 110/81
[2016-12-26] MEDS ORDERED: AMOXIL PO ONE (10:44)
--- NOTE | 2016-12-26 17:02 | DISCHARGE SUMMARY ---
ADMISSION DATE: 12/21/2016 DISCHARGE DATE: 12/26/2016 DISCHARGE LIST: 1. Seizure disorder with possibility of pseudoseizures. 2. Chronic anemia. 3. Questionable conversion disorder. HOSPITAL COURSE: Briefly this is a 31-year-old female with history of seizures who came in for altered mentation. She was having left-sided weakness and headache. Workup in the ER was negative. She was here July 2 years ago and had negative workup then. Came back in now with left-sided weakness. She was having some intermittent seizure-like activity so she was put on seizure medications. Her MRI this admission was negative and head CT. Dr. Anderson was consulted and he was concerned that there may be pseudoseizures but there may be some underlying seizures. The patient is and had hair extensions and refused to get those removed to have an EEG so we could not document or not seizure activity. She had several episodes of what clinically looked like a generalized tonic-clonic seizure but she was immediately responsive afterwards and could hold conversations and interact with her phone. Unclear if these were true seizures. We did initiate therapy with Keppra and topiramate per Dr. Anderson's recommendations. She is also on Depacon. Overall clinically, she improved. She did have an episode the day before discharge but has not had any episodes since the morning prior to discharge. She was felt clinically stable on the and was discharged on current medications. DISCHARGE CONDITION: Stable. DISCHARGE MEDICATIONS: As follows: Keppra 1.5 b.i.d., Ativan p.r.n., Topamax 25 daily, ferrous sulfate 325 b.i.d., Omnicef 300 p.o. b.i.d. for another 4 days for 7 days total for UTI,. She does have Enterococcus faecalis so we will actually give her some doxycycline, I think sensitive to ampicillin and she is only allergic to Bactrim so we will give her amoxicillin for 7 days total. FOLLOWUP: We will set her up for an outpatient EEG and follow up with Dr. Anderson. TIME SPENT: This was a 32 minute discharge. cc: MD Sommer Lomas III, MD
== END 2016-12-26 12:15 | disposition home or self-care (01) ==
LOC: ED 13:41 → SUATTDRO 16:37 → EDIPHOLD 16:37 → 3N 17:39 → 3S 12-22 12:07 → ICU 12-24 15:14
PROVIDERS: ATTEND Internal Medicine